=== PATIENT | male | born 1990 | race Hispanic/Latino ===

== ENCOUNTER 2017-12-04 22:11 | Emergency (ER) | payer SELFPAY | END 2017-12-04 23:12 | disposition home or self-care (01) | LOC: EDH 22:11 | DX: S61.213A Laceration without foreign body of left middle finger without damage to nail, initial encounter (principal); Z72.0 Tobacco use; W26.0XXA Contact with knife, initial encounter; Y93.89 Activity, other specified; Y92.098 Other place in other non-institutional residence as the place of occurrence of the external cause; Y99.8 Other external cause status | CPT/HCPCS: 12011 ==